=== PATIENT | male | born 1985 | race Caucasian/White ===

== ENCOUNTER 2016-09-21 02:04 | Emergency (ER) | payer OTHER ==
[~2016-09-21] VITALS: Ht 180.3 cm; Wt 80.6 kg
[2016-09-21 02:10] VITALS: TEMP 36.6; Ht 180.3 cm; Wt 80.6 kg
--- NOTE | 2016-09-21 02:29 | EMERGENCY ROOM VISIT NOTE ---
History Report prepared by Jimmyibrosemary: Delio Ty Under the Supervision of: Dr. Fara Sullivan D.O. First contact with patient: :17 Chief Complaint: BITE Stated Complaint: BIT BY BAT History of Present Illness The patient is a 31 year old male who presents to the Emergency Room with complaints of a sudden bite to his hand that occurred prior to arrival. He states that he noticed there was a bat in the house and chased it up the stairs into the bathroom. The patient states that he tried to pick the bat up out of the bath tub to put it out the window when the bat suddenly bit one of his hands. He reports that he was not wearing gloves and saw a drop of blood on his left finger. The patient denies having a rabies vaccine in the past. He states that he is currently on Adderall and takes allergy medication since moving from [place] to [place]. The patient denies headache, change in vision, fevers, chest pain, shortness of breath, nausea, vomiting, diarrhea, pain with urination, and melena. Source of History: patient Onset: prior to arrival Position: hand Quality: other (bite) Timing: other (sudden) Associated Symptoms: No fevers, No headache, No cough, No chest pain, No SOB , No nausea, No vomiting, No melena, No diarrhea, No urinary symptoms Review of Systems See HPI for pertinent positives & negatives. A total of 10 systems reviewed and were otherwise negative. Past Medical & Surgical Medical Problems: (1) ADHD (2) Seasonal allergies Family History Patient reports no known family medical history. Social History Smoking Status: Never Smoker Occupation Status: employed Current/Historical Medications Scheduled Amphetamine-Dextroamphetamine 20MG (Adderall Xr 20MG), 20 MG PO DIRECTED Diphenhydramine Hcl (Allergy Relief), Unknown Dose PO DAILY Allergies Coded Allergies: NSAIDs (Verified Allergy, Unknown, Hives, 09/21/16) Physical Exam Vital Signs Date Time Temp Pulse Resp B/P (MAP) Pulse Ox O2 Delivery O2 Flow Rate FiO2 09/21/16 03:29 72 18 117/62 98 09/21/16 02:10 36.6 82 20 118/78 95 Room Air Physical Exam GENERAL: alert, well appearing, well nourished, no distress, non-toxic NECK: supple, no nuchal rigidity, no adenopathy, non-tender LUNGS: Clear to auscultation. Normal chest wall mechanics HEART: no murmurs, S1 normal and S2 normal ABDOMEN: abdomen soft, non-tender, normo-active bowel sounds, no masses, no rebound or guarding. SKIN: no rashes and no bruising UPPER EXTREMITIES: upper extremities are grossly normal. No redness or swelling to hands. Full range of motion. No bite carbajal. No bony tenderness. Normal capillary refill. Normal pulses. LOWER EXTREMITIES: No pitting edema. NEURO EXAM: Normal sensorium, cranial nerves II-XII grossly intact, normal speech, no gross weakness of arms, no gross weakness of legs. Gross sensation intact. Medical Decision & Procedures Medications Administered Medications (Trade) Dose Ordered Sig/Claudine Route Start Time Stop Time Status Last Admin Dose Admin Rabies Immune Globulin (Imogam Rabies Inj) 1,600 interunit ONCE ONCE IM. 09/21/16 02:30 09/21/16 02:31 DC 09/21/16 03:06 1,600 INTERUNIT Rabies Vaccine Human Diploid Cell (Imovax Rabies) 2.5 interunit ONCE ONCE IM. 09/21/16 02:30 09/21/16 02:31 DC 09/21/16 03:07 2.5 INTERUNIT ED Course 0208: The patient was evaluated in room B02. A complete history and physical exam was performed. 0230: Imovax Rabies 2.5 interunit IM, Imogam Rabies Injection 1600 interunit IM. Medical Decision No evidence of additional trauma, bite sites unable to be seen, no bleeding, no discharge, no redness, no evidence of infection. Patient with full range of motion and normal strength in the hands hands otherwise nontender. Did not feel imaging warranted. Patient here due to possible exposure by bat bite. Discussed rabies vaccinations with patient at bedside. Did not feel patient needed prophylactic antibiotics, patient had irrigated the wounds home. Discussed with patient symptoms watch return for, need for follow-up to continue rabies series, he verbalized understanding was agreeable with plan. Medication Reconcilliation Current Medication List: was personally reviewed by me Blood Pressure Screening Patient's blood pressure: Normal blood pressure Impression Primary Impression: Bite by animal Additional Impression: Rabies exposure Scribe Attestation The scribe's documentation has been prepared under my direction and personally reviewed by me in its entirety. I confirm that the note above accurately reflects all work, treatment, procedures, and medical decision making performed by me. Departure Information Dispostion Home / Self-Care Referrals No Doctor, Assigned (PCP) Forms HOME CARE DOCUMENTATION FORM, IMPORTANT VISIT INFORMATION Patient Instructions My [facility] Additional Instructions Please return to the emergency room for the scheduled additional injections in your rabies vaccine series. Please continue to monitor the areas were your bitten for any evidence of infection including increased redness, pain, swelling , warmth, or drainage. If you have any of these symptoms or other new and concerning symptoms, please return to ER immediately. Problem Qualifiers
[2016-09-21] MEDS ORDERED: RABIES IMMUNE GLOBULIN (HUMAN) 150 INTER.UNIT/ML 2 ML VIAL IM. ONE (02:30)
[2016-09-21] MEDS ORDERED: RABIES VACCINE (IMOVAX) HUMAN DIPL CELL 2.5 INTER.UNIT/ML SYR IM. ONE (02:30)
[2016-09-21] MEDS ORDERED: DIPH25TA2 PO (02:30)
[2016-09-21 03:29] VITALS: BP 117/62; PULSE 72; O2SAT 98
[2016-10-05] MEDS ORDERED: AMPH20CA3 PO (02:29)
[2016-10-05] MEDS ORDERED: CLR10 PO (12:47)
== END 2016-09-21 03:32 | disposition home or self-care (01) ==
LOC: C.EDB 02:05
DX: S61.459A Open bite of unspecified hand, initial encounter (principal); Z20.3 Contact with and (suspected) exposure to rabies; W55.81XA Bitten by other mammals, initial encounter; Y93.89 Activity, other specified; Y99.8 Other external cause status; Y92.002 Bathroom of unspecified non-institutional (private) residence as the place of occurrence of the external cause; F90.9 Attention-deficit hyperactivity disorder, unspecified type; J30.2 Other seasonal allergic rhinitis; Z79.899 Other long term (current) drug therapy

== ENCOUNTER 2016-09-28 12:26 | Emergency (ER) | payer OTHER ==
[~2016-09-28] VITALS: Ht 180.3 cm; Wt 79.0 kg
[~2016-09-28 12:26] MED LIST: DIPH25TA2 PO
[2016-09-28 12:31] VITALS: BP 122/72; PULSE 87; TEMP 36.7; O2SAT 95; Ht 180.3 cm; Wt 79.0 kg
[2016-09-28] MEDS ORDERED: RABIES VACCINE (IMOVAX) HUMAN DIPL CELL 2.5 INTER.UNIT/ML SYR IM. ONE (12:45)
--- NOTE | 2016-09-28 12:57 | EMERGENCY ROOM VISIT NOTE ---
ED Visit Note First contact with patient: 12:40 CHIEF COMPLAINT: Rabies shot #3 HISTORY OF PRESENT ILLNESS: Patient is a 31-year-old white male who returns to the emergency department as advised for his third rabies vaccination. He is potentially exposed to rabies when he was bitten by a bat on 09/21. He was seen and initially treated here. He reports that he had his second vaccination (day 3) at [facility] on 09/[facility]. He denies any problems or concerns regarding the prior injections. Wounds have healed. REVIEW OF SYSTEMS: Review of systems as per HPI. All other systems reviewed were negative. At least 6 systems reviewed. PMH: Electronic medical records are reviewed and summarized as above/below. See Problem List. SOCIAL HISTORY: Patient lives at home. Employed. PHYSICAL EXAM: Vital Signs: Reviewed Nurse's notes. HEAD: Atraumatic, without temporal or scalp tenderness. EYES: PERRL, EOMI, no discharge or injection. SKIN: Normal. NEUROLOGICAL: Alert and cooperative. Sensory and motor functions grossly intact. EMERGENCY DEPARTMENT COURSE: Patient was given Imovax IM, observed and then discharged. He will return to the emergency department in one week for his final vaccination, sooner for any problems or concerns. Medication reconciliation: I attest that I have personally reviewed the patient' s current medication list. Blood pressure screening : Patient was found to have normal blood pressure on screening and does not require follow-up. Current/Historical Medications Scheduled Amphetamine-Dextroamphetamine 20MG (Adderall Xr 20MG), 20 MG PO DIRECTED Loratadine (Claritin), 10 MG PO DAILY Allergies Coded Allergies: NSAIDs (Verified Allergy, Unknown, Hives, 09/28/16) Vital Signs Date Time Temp Pulse Resp B/P (MAP) Pulse Ox O2 Delivery O2 Flow Rate FiO2 09/28/16 12:31 36.7 87 16 122/72 95 Room Air Medications Administered Medications (Trade) Dose Ordered Sig/Claudine Route Start Time Stop Time Status Last Admin Dose Admin Rabies Vaccine Human Diploid Cell (Imovax Rabies) 2.5 interunit ONCE ONCE IM. 09/28/16 12:45 09/28/16 12:46 DC 09/28/16 12:48 2.5 INTERUNIT Departure Information Impression Primary Impression: Rabies, need for prophylactic vaccination against Referrals [facility] (PCP) Patient Instructions My [facility] Additional Instructions Return to the Emergency Department nexk Friday for your final vaccination, sooner for any problems or concerns.
[2016-10-05] MEDS ORDERED: AMPH20CA3 PO (02:29)
[2016-10-05] MEDS ORDERED: CLR10 PO (12:47)
== END 2016-09-28 13:01 | disposition home or self-care (01) ==
LOC: C.EDB 12:27 → C.EDD 13:01
DX: Z20.3 Contact with and (suspected) exposure to rabies (principal); Z23 Encounter for immunization

== ENCOUNTER 2016-10-05 21:11 | Emergency (ER) | payer OTHER ==
[~2016-10-05] VITALS: Ht 180.3 cm; Wt 79.8 kg
[~2016-10-05 21:11] MED LIST changes: +AMPH20CA3 PO; +CLR10 PO; -DIPH25TA2 PO
[2016-10-05 21:14] VITALS: TEMP 36.6; Ht 180.3 cm; Wt 79.8 kg
[2016-10-05] MEDS ORDERED: AMPH20TA2 PO (21:40)
[2016-10-05 21:45] VITALS: BP 118/78; PULSE 83; O2SAT 99
[2016-10-05] MEDS ORDERED: RABIES VACCINE (IMOVAX) HUMAN DIPL CELL 2.5 INTER.UNIT/ML SYR IM. ONE (21:45)
--- NOTE | 2016-10-06 00:02 | EMERGENCY ROOM VISIT NOTE ---
ED Visit Note First contact with patient: 21:31 CHIEF COMPLAINT: Rabies prophylaxis HISTORY OF PRESENT ILLNESS: This 31-year-old male patient presents to the emergency department for their fourth and final rabies shot. The patient has not had any complications from the previous injections. They deny any other complaints. REVIEW OF SYSTEMS: A 6 system review of systems was completed with positives and pertinent negatives listed in the HPI. ALLERGIES: NSAIDs MEDICATIONS: See EMR PMH: Unchanged from previous visit. PHYSICAL EXAM: Vital Signs: Reviewed Nurse's notes, vital signs stable. GENERAL : White male, in no acute distress, well-developed, well-nourished. HEAD: Atraumatic, without temporal or scalp tenderness. EYES: PERRLA, EOMI, no discharge or injection. SKIN: Normal. NEUROLOGICAL: Alert and cooperative. Sensory and motor functions grossly intact. EMERGENCY DEPARTMENT COURSE: I examined the patient. The patient was given Imovax 1ml IM. The patient was observed for 20 minutes with no reaction. The patient was discharged home in stable condition with instructions as below. Current/Historical Medications Scheduled Amphetamine-Dextroamphetamine 20MG (Adderall Xr 20MG), 20 MG PO DIRECTED Amphetamine-Dextroamphetamine 20MG (Adderall 20MG), 20 MG PO DAILY Loratadine (Claritin), 10 MG PO DAILY Allergies Coded Allergies: NSAIDs (Verified Allergy, Unknown, Hives, 09/28/16) Vital Signs Date Time Temp Pulse Resp B/P (MAP) Pulse Ox O2 Delivery O2 Flow Rate FiO2 10/05/16 21:45 83 18 118/78 99 10/05/16 21:14 36.6 86 18 122/80 99 Room Air Medications Administered Medications (Trade) Dose Ordered Sig/Claudine Route Start Time Stop Time Status Last Admin Dose Admin Rabies Vaccine Human Diploid Cell (Imovax Rabies) 2.5 interunit ONCE ONCE IM. 10/05/16 21:45 10/05/16 21:46 DC 10/05/16 21:43 2.5 INTERUNIT Departure Information Impression Primary Impression: Need for post exposure prophylaxis for rabies Dispostion Home / Self-Care Condition GOOD Forms HOME CARE DOCUMENTATION FORM, IMPORTANT VISIT INFORMATION Patient Instructions My [facility] Additional Instructions You were seen and evaluated today on an emergency basis only. This is not a substitute for, or an effort to provide, complete comprehensive medical care. It is not possible to recognize and treat all injuries or illnesses in a single emergency department visit. For this reason it is recommended that you followup with your primary care physician with any ongoing or persistent complaints. Today was your fourth and final rabies shot. This completes your series. You are welcome to return to the emergency department anytime with new, worsening, or concerning symptoms.
== END 2016-10-05 21:45 | disposition home or self-care (01) ==
LOC: C.EDB 21:12 → C.EDD 21:45
DX: Z23 Encounter for immunization (principal); Z20.3 Contact with and (suspected) exposure to rabies